=== PATIENT | male | born 1970 | race Caucasian/White ===

== ENCOUNTER 2017-08-29 16:15 | Emergency (ER) | payer SELFPAY ==
[~2017-08-29] VITALS: Ht 167.6 cm; Wt 75.0 kg
[~2017-08-29 16:15] MED LIST: Z.0.NO CURRENT MEDS
[2017-08-29 16:39] VITALS: BP 145/77; PULSE 89; RESP 18; TEMP 98.2
--- NOTE | 2017-08-29 17:00 | PD ---
HPI Chief Complaint: Alcohol/Drug Intoxication Time Seen by Provider: 16:56 Travel History International Travel<30 days: No Contact w/Intl Traveler<30days: No Traveled to known affect area: No History of Present Illness HPI 47-year-old male presents to the ED via EMS after being found intoxicated. On presentation the patient is intoxicated. He admits to drinking "a lot of vodka " today. He states that he is on vacation and plans to go back to [facility]. He has no somatic complaints. He repeatedly asks if he can leave. PFSH Past Medical History Cardiovascular Problems: Yes Diabetes: No Diminished Hearing: No Social History Alcohol Use: Yes (14 - 18 BEERS PER DAY FOR PAST MONTHS) Tobacco Use: Yes (2 PPD) Substance Use: Yes Allergies-Medications (Allergen,Severity, Reaction): Coded Allergies: azithromycin (Unverified Allergy, Mild, 07/13/17) bee venom protein (honey bee) (Unverified Allergy, Mild, 07/13/17) clarithromycin (Unverified Allergy, Mild, 07/13/17) erythromycin base (Unverified Allergy, Mild, 07/13/17) penicillin G (Unverified Allergy, Mild, 07/13/17) Reported Meds & Prescriptions Reported Meds & Active Scripts Active Active Prescriptions or Reported Medications Unobtainable Review of Systems ROS Limitations: Intoxication Except as stated in HPI: all other systems reviewed are Neg Physical Exam Exam Limitations: Intoxication Narrative GENERAL: Well-nourished, well-developed white male in no acute distress. SKIN: Focused skin assessment warm/dry. Multiple tattoos. Few old, crusted wounds in the right lower extremity. No signs of infection. HEAD: Normocephalic. Atraumatic. EYES: No scleral icterus. No injection or drainage. PERRLA. EOMI. NECK: Supple, trachea midline. No JVD or lymphadenopathy. CARDIOVASCULAR: Regular rate and rhythm without murmurs, gallops, or rubs. RESPIRATORY: Breath sounds equal bilaterally. No accessory muscle use. GASTROINTESTINAL: Abdomen soft, non-tender, nondistended. Active bowel sounds. MUSCULOSKELETAL: No cyanosis, or edema. Equal strength in the extremities. BACK: Nontender without obvious deformity. No CVA tenderness. Data Data Last Documented VS Vital Signs Date Time Temp Pulse Resp B/P (MAP) Pulse Ox O2 Delivery O2 Flow Rate FiO2 08/29/17 21:10 98.0 80 14 137/85 (102) 08/29/17 16:44 99 Room Air Orders Orders Restraints Non-Violent ASHLEE.Q3H (08/29/17 17:29) Diet Regular Basic (08/29/17 Dinner) MDM Medical Decision Making Medical Screen Exam Complete: Yes Emergency Medical Condition: Yes Differential Diagnosis Acute alcohol intoxication versus chronic alcoholism versus alcohol abuse versus malingering versus other Narrative Course 47-year-old male presents to the ED via EMS after being found intoxicated. On presentation the patient is intoxicated. He admits to drinking "a lot of vodka " today. He states that he is on vacation and plans to go back to [facility]. He has no somatic complaints. He repeatedly asks if he can leave. Vitals reviewed. On physical exam the patient is intoxicated but the exam is otherwise unremarkable. One point he became very abusive towards staff and flopped on the ground. He required nonviolent restraints. After a period of time I discussed with the patient his need to cooperate and he was agreeable. Restraints were removed. Patient is resting comfortably on the stretcher, watching TV. I reviewed the record, patient was discharged this morning at 11 AM with similar presentation. The patient was monitored in the ED for a few hours. He was able to demonstrate a normal gait on reevaluation. He is encouraged to seek outpatient treatment for his chronic alcohol abuse. He stable and discharged home. Diagnosis Primary Impression: Alcohol abuse Additional Impression: Alcohol intoxication Qualified Codes: F10.920 - Alcohol use, unspecified with intoxication, uncomplicated Referrals: [facility] (Out patient) Patient Instructions: Abuse of Alcohol (ED), General Instructions Additional Instructions: Seek outpatient treatment for alcohol abuse. Return to the ED for any urgent or emergent medical condition. Scripts Unable to Obtain Active Prescriptions or Reported Meds Disposition: 01 DISCHARGE HOME Condition: Stable Danae Bingham Aug 29, 2017 17:00
[2017-08-29 21:10] VITALS: BP 137/85; TEMP 98
== END 2017-08-29 21:12 | disposition home or self-care (01) ==
LOC: NEPD 16:15
DX: F10.10 Alcohol abuse, uncomplicated (principal); F10.129 Alcohol abuse with intoxication, unspecified; Z72.0 Tobacco use
CPT/HCPCS: 99285